=== PATIENT | male | born 1990 | race Two or more races ===

== ENCOUNTER 2021-04-07 07:14 | Inpatient (IN) | payer MEDICAID, OTHER ==
[~2021-04-07] VITALS: Ht 170.2 cm; Wt 124.3 kg
[~2021-04-07 07:14] MED LIST: ONDA4TAB11 PO; PANT40SU PO
[2021-04-07] MEDS ORDERED: VISCOUS LIDOCAINE 2% 15 ML UDC PO STA (08:37)
[2021-04-07] MEDS ORDERED: ONDANSETRON HCL 4MG/2ML INJ IV STA (08:37)
[2021-04-07] MEDS ORDERED: MAGNESIUM/ALUMINUM HYDROXIDE/SIMETHICONE 30ML UDC PO STA (08:37)
[2021-04-07] MEDS ORDERED: MORPHINE SULFATE 4 MG/ML CPJ (NOT FOR IM USE) IV STA (08:37)
[2021-04-07] MEDS ORDERED: SODIUM CHLORIDE 0.9% 1,000 ML IV ONE (08:45)
[2021-04-07 08:55] LABS: BASOPHILS % 0.4 % (0.0-2.0); HEMATOCRIT. 45.6 % (42.0-52.0); HEMOGLOBIN. 15.2 g/dL (14.0-18.0); LYMPHOCYTES % 8.7 % (20.0-50.0); MEAN CORPUSCULAR HEMOGLOBIN 26.6 pg (28.0-32.0); MEAN CORPUSCULAR VOLUME 79.6 fL (80.0-94.0); MEAN PLATELET VOLUME 8.8 fl (7.4-10.4); MONOCYTES % 9.1 % (2.0-8.0); NEUTROPHILS % 81.8 % (40.0-76.0); PLATELET 222 x1000/uL (130-400); RED BLOOD CELL COUNT 5.73 mill/uL (4.7-6.1)
[2021-04-07 09:02] LABS: CHLORIDE 107 mEq/L (98-107)
[2021-04-07] MEDS ORDERED: DEXAMETHASONE 10 MG/ML VIAL IV ONE (11:00)
[2021-04-07] MEDS ORDERED: ENOXAPARIN 40MG/0.4ML SYR SUBCUT SCH (13:45)
[2021-04-07] MEDS ORDERED: CLONIDINE 0.1MG TABLET PO PRN (13:45)
[2021-04-07] MEDS: SODIUM CHLORIDE 0.9% 1,000 ML IV SCH (14:28)
[2021-04-07] MEDS ORDERED: PANTOPRAZOLE SODIUM 40 MG/VIAL IV SCH (15:30)
[2021-04-07 18:24] VITALS: BP 127/74
[2021-04-07] MEDS: ENOXAPARIN 30MG/0.3ML SYR SUBCUT SCH (19:21)
[2021-04-07] MEDS: PANTOPRAZOLE SODIUM 40 MG/VIAL IV SCH (19:22)
[2021-04-07 20:00] VITALS: BP 124/78
[2021-04-07] MEDS: GUAIFENESIN-DM 200MG-20MG/10ML UDC PO PRN (21:45)
[2021-04-07] MEDS: ACETAMINOPHEN 325MG TABLET PO PRN (21:46)
[2021-04-07] MEDS: CEFTRIAXONE 1,000 MG in DEXTROSE 5% WATER 50 ML IV SCH (21:46)
[2021-04-08] VITALS: BP 110/69
[2021-04-08 04:00] VITALS: BP 116/76
[2021-04-08] MEDS: SODIUM CHLORIDE 0.9% 1,000 ML IV SCH ×2 (05:14→16:09)
[2021-04-08] MEDS: ACETAMINOPHEN 325MG TABLET PO PRN ×3 (05:15→22:01)
[2021-04-08] MEDS: ENOXAPARIN 30MG/0.3ML SYR SUBCUT SCH (05:15)
[2021-04-08 08:00] VITALS: BP 106/69
[2021-04-08] MEDS: DEXAMETHASONE 10 MG/ML VIAL IV SCH (08:14)
[2021-04-08] MEDS: PANTOPRAZOLE SODIUM 40 MG/VIAL IV SCH ×2 (08:14→16:09)
[2021-04-08 08:21] LABS: BASOPHILS % 0.3 % (0.0-2.0); HEMATOCRIT. 43.8 % (42.0-52.0); HEMOGLOBIN. 14.5 g/dL (14.0-18.0); LYMPHOCYTES % 16.7 % (20.0-50.0); MEAN CORPUSCULAR HEMOGLOBIN 26.3 pg (28.0-32.0); MEAN CORPUSCULAR VOLUME 79.8 fL (80.0-94.0); MEAN PLATELET VOLUME 9.6 fl (7.4-10.4); MONOCYTES % 8.8 % (2.0-8.0); NEUTROPHILS % 74.2 % (40.0-76.0); PLATELET 233 x1000/uL (130-400); RED BLOOD CELL COUNT 5.49 mill/uL (4.7-6.1); RED CELL DISTRIBUTION WIDTH 14.2 % (11.6-14.6)
[2021-04-08 08:53] LABS: CHLORIDE 105 mEq/L (98-107)
[2021-04-08 09:04] LABS: LDL CHOLESTEROL 75 mg/dL (5-100); PHOSPHORUS 3.2 mg/dL (2.5-4.9)
[2021-04-08 09:06] LABS: HDL CHOLESTEROL 35 mg/dL (40-59)
[2021-04-08 12:15] VITALS: BP 107/65
[2021-04-08 15:58] VITALS: BP 127/70
[2021-04-08] MEDS: IBUPROFEN 400MG TABLET PO PRN (16:09)
[2021-04-08 20:00] VITALS: BP 104/76
[2021-04-08] MEDS: CEFTRIAXONE 1,000 MG in DEXTROSE 5% WATER 50 ML IV SCH (22:01)
[2021-04-09] VITALS: BP 103/64
[2021-04-09 04:00] VITALS: BP 107/70
[2021-04-09] MEDS: SODIUM CHLORIDE 0.9% 1,000 ML IV SCH ×2 (05:29→18:20)
[2021-04-09] MEDS: ACETAMINOPHEN 325MG TABLET PO PRN ×2 (05:29→13:38)
[2021-04-09 07:17] LABS: BASOPHILS % 0.5 % (0.0-2.0); HEMATOCRIT. 41.8 % (42.0-52.0); HEMOGLOBIN. 13.8 g/dL (14.0-18.0); LYMPHOCYTES % 14.2 % (20.0-50.0); MEAN CORPUSCULAR HEMOGLOBIN 26.5 pg (28.0-32.0); MEAN CORPUSCULAR VOLUME 80.1 fL (80.0-94.0); MEAN PLATELET VOLUME 9.7 fl (7.4-10.4); MONOCYTES % 7.7 % (2.0-8.0); NEUTROPHILS % 77.6 % (40.0-76.0); PLATELET 268 x1000/uL (130-400); RED BLOOD CELL COUNT 5.21 mill/uL (4.7-6.1)
[2021-04-09 08:00] VITALS: BP 113/67
[2021-04-09] MEDS: ENOXAPARIN 40MG/0.4ML SYR SUBCUT SCH (09:21)
[2021-04-09] MEDS: PANTOPRAZOLE SODIUM 40 MG/VIAL IV SCH ×2 (09:21→18:20)
[2021-04-09] MEDS: ONDANSETRON HCL 4MG/2ML INJ IV PRN ×2 (09:22→18:20)
[2021-04-09 12:00] VITALS: BP 119/77
[2021-04-09] MEDS: DEXAMETHASONE 10 MG/ML VIAL IV SCH (13:37)
[2021-04-09] MEDS: IBUPROFEN 400MG TABLET PO PRN (13:37)
[2021-04-09 16:00] VITALS: BP 116/71
[2021-04-09 20:00] VITALS: BP 125/69
[2021-04-09] MEDS: CEFTRIAXONE 1,000 MG in DEXTROSE 5% WATER 50 ML IV SCH (21:03)
[2021-04-09] MEDS: GUAIFENESIN 600MG ER TABLET PO SCH (21:03)
[2021-04-10] VITALS: BP 113/60
[2021-04-10 04:00] VITALS: BP 120/70
[2021-04-10 08:00] VITALS: BP 121/72
[2021-04-10] MEDS: DEXAMETHASONE 10 MG/ML VIAL IV SCH (08:54)
[2021-04-10] MEDS: ACETAMINOPHEN 325MG TABLET PO PRN (08:54)
[2021-04-10] MEDS: PANTOPRAZOLE SODIUM 40 MG/VIAL IV SCH ×2 (08:54→16:10)
[2021-04-10] MEDS: ENOXAPARIN 40MG/0.4ML SYR SUBCUT SCH (08:55)
[2021-04-10] MEDS: GUAIFENESIN 600MG ER TABLET PO SCH ×2 (08:57→20:35)
[2021-04-10 09:45] LABS: BASOPHILS % 0.2 % (0.0-2.0); HEMATOCRIT. 42.8 % (42.0-52.0); HEMOGLOBIN. 14.3 g/dL (14.0-18.0); LYMPHOCYTES % 19.3 % (20.0-50.0); MEAN CORPUSCULAR HEMOGLOBIN 26.5 pg (28.0-32.0); MEAN CORPUSCULAR VOLUME 79.5 fL (80.0-94.0); MONOCYTES % 11.5 % (2.0-8.0); PLATELET 286 x1000/uL (130-400); RED BLOOD CELL COUNT 5.38 mill/uL (4.7-6.1)
[2021-04-10 09:49] LABS: CHLORIDE 108 mEq/L (98-107)
[2021-04-10 10:50] LABS: CLARITY URINE CLEAR (CLEAR); COLOR URINE YELLOW (YELLOW); KETONES URINE 2+ (NEGATIVE); LEUKOCYTE ESTERASE URINE NEGATIVE (NEGATIVE); NITRITE URINE NEGATIVE (NEGATIVE); OCCULT BLOOD URINE NEGATIVE (NEGATIVE); PH URINE 7.5 (4.5-8.0); PROTEIN URINE NEGATIVE (NEGATIVE); SPECIFIC GRAVITY URINE 1.022 (1.005-1.030); UROBILINOGEN URINE 0.2 E.U./dL (0.2-1.0)
[2021-04-10 11:08] LABS: *COCAINE SCREEN URINE NEGATIVE (NEGATIVE); METHADONE URINE SCREEN NEGATIVE (NEGATIVE); OPIATES URINE SCREEN NEGATIVE (NEGATIVE)
[2021-04-10 11:09] LABS: *AMPHETAMINES SCREEN URINE NEGATIVE (NEGATIVE); *BARBITURATES SCREEN URINE NEGATIVE (NEGATIVE); *BENZODIAZEPINES SCREEN URINE NEGATIVE (NEGATIVE); CANNABINOID URINE SCREEN NEGATIVE (NEGATIVE); PHENCYCLIDINE URINE SCREEN NEGATIVE (NEGATIVE)
[2021-04-10 12:00] VITALS: BP 118/69
[2021-04-10 16:00] VITALS: BP 123/70
[2021-04-10] MEDS: ONDANSETRON HCL 4MG/2ML INJ IV PRN (16:10)
[2021-04-10 20:00] VITALS: BP 132/88
[2021-04-10] MEDS: CEFTRIAXONE 1,000 MG in DEXTROSE 5% WATER 50 ML IV SCH (20:35)
[2021-04-10] MEDS: SODIUM CHLORIDE 0.9% 1,000 ML IV SCH ×2 (20:35→22:15)
[2021-04-10] MEDS ORDERED: NALOXONE HCL 0.4MG/ML VIAL IV PRN (22:00)
[2021-04-10] MEDS: MAGNESIUM/ALUMINUM HYDROXIDE/SIMETHICONE 30ML UDC PO SCH ×2 (22:14→23:58)
[2021-04-10] MEDS: HYDROCODONE/ACETAMINOPHEN 5/325MG TABLET PO PRN (22:14)
[2021-04-11] VITALS: BP 125/77
[2021-04-11 04:00] VITALS: BP 116/65
[2021-04-11] MEDS: MAGNESIUM/ALUMINUM HYDROXIDE/SIMETHICONE 30ML UDC PO SCH ×5 (04:11→20:12)
[2021-04-11 08:00] VITALS: BP 124/71
[2021-04-11 08:18] LABS: BASOPHILS % 0.3 % (0.0-2.0); HEMATOCRIT. 43.5 % (42.0-52.0); HEMOGLOBIN. 14.5 g/dL (14.0-18.0); LYMPHOCYTES % 21.4 % (20.0-50.0); MEAN CORPUSCULAR HEMOGLOBIN 26.6 pg (28.0-32.0); MEAN CORPUSCULAR VOLUME 80.1 fL (80.0-94.0); MEAN PLATELET VOLUME 9.2 fl (7.4-10.4); MONOCYTES % 13.3 % (2.0-8.0); PLATELET 341 x1000/uL (130-400); RED BLOOD CELL COUNT 5.43 mill/uL (4.7-6.1); RED CELL DISTRIBUTION WIDTH 14.1 % (11.6-14.6)
[2021-04-11 08:34] LABS: CHLORIDE 109 mEq/L (98-107)
[2021-04-11] MEDS: PANTOPRAZOLE SODIUM 40 MG/VIAL IV SCH ×2 (09:42→18:04)
[2021-04-11] MEDS: DEXAMETHASONE 10 MG/ML VIAL IV SCH (09:42)
[2021-04-11] MEDS: GUAIFENESIN 600MG ER TABLET PO SCH ×2 (09:42→20:12)
[2021-04-11] MEDS: ENOXAPARIN 40MG/0.4ML SYR SUBCUT SCH (09:43)
[2021-04-11] MEDS: HYDROCODONE/ACETAMINOPHEN 5/325MG TABLET PO PRN ×2 (09:43→20:12)
[2021-04-11 12:00] VITALS: BP 119/68
[2021-04-11] MEDS: SODIUM CHLORIDE 0.9% 1,000 ML IV SCH (12:57)
[2021-04-11 16:00] VITALS: BP 117/67
[2021-04-11] MEDS: ACETAMINOPHEN 325MG TABLET PO PRN (18:03)
[2021-04-11] MEDS: GUAIFENESIN-DM 200MG-20MG/10ML UDC PO PRN (18:03)
[2021-04-11 20:00] VITALS: BP 130/90
[2021-04-11] MEDS: CEFTRIAXONE 1,000 MG in DEXTROSE 5% WATER 50 ML IV SCH (20:12)
[2021-04-11] MEDS: METOCLOPRAMIDE HCL 10MG/2ML VIAL IV PRN (20:12)
[2021-04-12] VITALS: BP 119/84
[2021-04-12] MEDS: MAGNESIUM/ALUMINUM HYDROXIDE/SIMETHICONE 30ML UDC PO SCH ×6 (00:14→20:00)
[2021-04-12] MEDS: SODIUM CHLORIDE 0.9% 1,000 ML IV SCH ×2 (00:16→13:20)
[2021-04-12] MEDS: METOCLOPRAMIDE HCL 10MG/2ML VIAL IV PRN ×2 (02:41→21:37)
[2021-04-12] MEDS: HYDROCODONE/ACETAMINOPHEN 5/325MG TABLET PO PRN ×2 (02:41→09:59)
[2021-04-12] MEDS: MORPHINE SULFATE 2 MG/ML CPJ (NOT FOR IM USE) IV PRN ×4 (03:56→21:33)
[2021-04-12 04:00] VITALS: BP 108/76
[2021-04-12 06:22] LABS: BASOPHILS % 0.2 % (0.0-2.0); EOSINOPHILS % 0.1 % (0.0-5.0); HEMATOCRIT. 43.9 % (42.0-52.0); HEMOGLOBIN. 14.4 g/dL (14.0-18.0); LYMPHOCYTES % 24.3 % (20.0-50.0); MEAN CORPUSCULAR HEMOGLOBIN 26.4 pg (28.0-32.0); MEAN CORPUSCULAR VOLUME 80.3 fL (80.0-94.0); MEAN PLATELET VOLUME 8.9 fl (7.4-10.4); MONOCYTES % 13.2 % (2.0-8.0); NEUTROPHILS % 62.2 % (40.0-76.0); PLATELET 395 x1000/uL (130-400); RED BLOOD CELL COUNT 5.46 mill/uL (4.7-6.1)
[2021-04-12 06:57] LABS: CHLORIDE 107 mEq/L (98-107)
[2021-04-12 08:00] VITALS: BP 113/80
[2021-04-12] MEDS: GUAIFENESIN 600MG ER TABLET PO SCH ×2 (08:16→21:00)
[2021-04-12] MEDS: PANTOPRAZOLE SODIUM 40 MG/VIAL IV SCH ×2 (08:17→16:53)
[2021-04-12] MEDS: ENOXAPARIN 40MG/0.4ML SYR SUBCUT SCH (08:17)
[2021-04-12] MEDS: DEXAMETHASONE 10 MG/ML VIAL IV SCH (08:17)
[2021-04-12 12:00] VITALS: BP 132/91
[2021-04-12] MEDS: BENZONATATE 100MG CAPSULE PO SCH ×2 (13:19→22:00)
[2021-04-12] MEDS ORDERED: POTASSIUM CHLORIDE 20MEQ TABLET SR PO NR (13:30)
[2021-04-12 16:00] VITALS: BP 147/97
[2021-04-12] MEDS: ONDANSETRON HCL 4MG/2ML INJ IV PRN ×2 (16:53→21:35)
[2021-04-12 19:25] LABS: AMYLASE 90 IU/L (25-115)
[2021-04-12 19:27] LABS: T4 FREE 1.59 ng/dL (0.76-1.46)
[2021-04-12 20:00] VITALS: BP 133/86
[2021-04-12] MEDS: ENOXAPARIN 30MG/0.3ML SYR SUBCUT SCH (21:00)
[2021-04-13] VITALS: BP 108/59
[2021-04-13] MEDS: SODIUM CHLORIDE 0.9% 1,000 ML IV SCH ×2 (03:05→17:37)
[2021-04-13] MEDS: MAGNESIUM/ALUMINUM HYDROXIDE/SIMETHICONE 30ML UDC PO SCH ×6 (03:51→20:00)
[2021-04-13 04:00] VITALS: BP 127/79
[2021-04-13] MEDS: BENZONATATE 100MG CAPSULE PO SCH ×3 (06:00→21:48)
[2021-04-13 07:34] LABS: CHLORIDE 107 mEq/L (98-107)
[2021-04-13 07:44] LABS: BASOPHILS % 0.4 % (0.0-2.0); EOSINOPHILS % 0.3 % (0.0-5.0); HEMATOCRIT. 44.6 % (42.0-52.0); HEMOGLOBIN. 14.8 g/dL (14.0-18.0); MEAN CORPUSCULAR HEMOGLOBIN 26.4 pg (28.0-32.0); MEAN CORPUSCULAR VOLUME 79.6 fL (80.0-94.0); MEAN PLATELET VOLUME 8.4 fl (7.4-10.4); MONOCYTES % 13.4 % (2.0-8.0); NEUTROPHILS % 57.9 % (40.0-76.0); PLATELET 392 x1000/uL (130-400); RED CELL DISTRIBUTION WIDTH 13.8 % (11.6-14.6)
[2021-04-13 08:00] VITALS: BP 115/68
[2021-04-13] MEDS: HYDROCODONE/ACETAMINOPHEN 5/325MG TABLET PO PRN (08:22)
[2021-04-13] MEDS: DEXAMETHASONE 10 MG/ML VIAL IV SCH ×2 (08:22→09:00)
[2021-04-13] MEDS: PANTOPRAZOLE SODIUM 40 MG/VIAL IV SCH ×2 (08:22→17:36)
[2021-04-13] MEDS: ENOXAPARIN 30MG/0.3ML SYR SUBCUT SCH ×2 (08:24→21:00)
[2021-04-13] MEDS: MULTIVITAMINS,THER W-MINERALS TABLET PO SCH (08:43)
[2021-04-13] MEDS: GUAIFENESIN 600MG ER TABLET PO SCH ×2 (08:43→21:00)
[2021-04-13] MEDS: MORPHINE SULFATE 2 MG/ML CPJ (NOT FOR IM USE) IV PRN (11:15)
[2021-04-13 12:00] VITALS: BP 128/89
[2021-04-13] MEDS: HYDROMORPHONE HCL/PF 2MG/ML CPJ IV PRN ×3 (12:19→21:41)
[2021-04-13] MEDS: METOCLOPRAMIDE HCL 10MG/2ML VIAL IV SCH ×3 (13:43→23:38)
[2021-04-13 16:00] VITALS: BP 106/54
[2021-04-13 20:00] VITALS: BP 114/75
[2021-04-13] MEDS: DIPHENHYDRAMINE 50MG/ML VIAL IV PRN (21:44)
[2021-04-13] MEDS ORDERED: IOHEXOL-300 100 ML BOTTLE ONE (22:51)
[2021-04-14] VITALS: BP 112/69
[2021-04-14 04:00] VITALS: BP 122/85
[2021-04-14] MEDS: MAGNESIUM/ALUMINUM HYDROXIDE/SIMETHICONE 30ML UDC PO SCH ×5 (04:00→16:00)
[2021-04-14] MEDS: SODIUM CHLORIDE 0.9% 1,000 ML IV SCH (05:45)
[2021-04-14] MEDS: BENZONATATE 100MG CAPSULE PO SCH ×2 (05:49→14:00)
[2021-04-14] MEDS: METOCLOPRAMIDE HCL 10MG/2ML VIAL IV SCH ×2 (05:51→12:13)
[2021-04-14 07:58] LABS: BASOPHILS % 0.5 % (0.0-2.0); EOSINOPHILS % 1.5 % (0.0-5.0); HEMATOCRIT. 44.4 % (42.0-52.0); LYMPHOCYTES % 22.4 % (20.0-50.0); MEAN CORPUSCULAR HEMOGLOBIN 26.4 pg (28.0-32.0); MEAN PLATELET VOLUME 8.6 fl (7.4-10.4); MONOCYTES % 9.6 % (2.0-8.0); PLATELET 435 x1000/uL (130-400); RED BLOOD CELL COUNT 5.69 mill/uL (4.7-6.1); RED CELL DISTRIBUTION WIDTH 13.8 % (11.6-14.6)
[2021-04-14 08:00] VITALS: BP 121/64
[2021-04-14 08:21] LABS: CHLORIDE 105 mEq/L (98-107)
[2021-04-14] MEDS: MULTIVITAMINS,THER W-MINERALS TABLET PO SCH (09:00)
[2021-04-14] MEDS: GUAIFENESIN 600MG ER TABLET PO SCH (09:00)
[2021-04-14] MEDS: ENOXAPARIN 30MG/0.3ML SYR SUBCUT SCH (09:00)
[2021-04-14] MEDS: PANTOPRAZOLE SODIUM 40 MG/VIAL IV SCH ×2 (09:39→17:00)
[2021-04-14] MEDS: HYDROMORPHONE HCL/PF 2MG/ML CPJ IV PRN ×2 (09:39→13:46)
[2021-04-14] MEDS: ONDANSETRON HCL 4MG/2ML INJ IV PRN (09:40)
[2021-04-14 12:00] VITALS: BP 123/65
[2021-04-14] MEDS: DIPHENHYDRAMINE 50MG/ML VIAL IV PRN (12:13)
[2021-04-14] MEDS: HYDROCODONE/ACETAMINOPHEN 5/325MG TABLET PO PRN (12:13)
[2021-04-14] MEDS ORDERED: ONDA4TAB11 PO (12:56)
[2021-04-14] MEDS ORDERED: HYDR-4001 MT (12:56)
[2021-04-14] MEDS ORDERED: PANT40SU PO (12:56)
[2021-04-14 16:00] VITALS: BP 125/65
[2021-04-14 16:48] VITALS: BP 121/69
== END 2021-04-14 17:25 | disposition home or self-care (01) | DRG 720 ==
LOC: ER 07:14 → EDBEDREQTM 11:43 → EDBEDREQ 11:43 → EDBEDREQSVC 11:44 → ENRESERV 16:16 → 7WST 18:04
PROVIDERS: ADMIT Internal Medicine; ATTEND Internal Medicine
DX: A41.89 Other specified sepsis (principal); U07.1 COVID-19; J96.01 Acute respiratory failure with hypoxia; I51.7 Cardiomegaly; K21.9 Gastro-esophageal reflux disease without esophagitis; K92.0 Hematemesis; J20.8 Acute bronchitis due to other specified organisms; R73.9 Hyperglycemia, unspecified; R10.9 Unspecified abdominal pain; R51.9 Headache, unspecified; K57.30 Diverticulosis of large intestine without perforation or abscess without bleeding; R20.0 Anesthesia of skin; R74.02 Elevation of levels of lactic acid dehydrogenase [LDH]; R53.1 Weakness; K76.0 Fatty (change of) liver, not elsewhere classified; K82.4 Cholesterolosis of gallbladder; R16.1 Splenomegaly, not elsewhere classified; Z79.899 Other long term (current) drug therapy
CPT/HCPCS: 36415; 71045; 74177; 76700; 80048; 80053; 80061; 80305; 81003; 82150; 82728; 83036; 83615; 83735; 84100; 84145; 84439; 84443; 84481; 84484; 85025; 85379; 86140; 87426; 93005; 93970; 99285; C9113; J0696; J1100; J1170; J1200; J1650; J2270; J2405; J2765; J7030; J7040; J7060; Q9967; U0003; U0005